=== PATIENT | female | born 1965 | race Caucasian/White ===

== ENCOUNTER 2022-09-16 11:08 | Observation (INO) | payer SELFPAY ==
[2022-09-16] VITALS (17 sets, daily range): BP systolic 115–174; BP diastolic 54–90
[~2022-09-16] VITALS: Ht 172.7 cm; Wt 155.4 kg
[~2022-09-16 11:08] MED LIST: BACTRIM DS1 TAB PO; CIPROFLOXACN500 MG PO; CLEOCIN300 MG PO; FLORASTOR250 M1 PO; LORTAB 5 OR; MINOCYCLINE100 MG PO; NO HOME MEDS; PENICILLN VK500 MG OR; TESSALON PER100 MG PO; VENTOLIN HF1 IN; ZITHROMAX250 MG PO
--- NOTE | 2022-09-16 12:35 | NUR ---
PT TO ROOM W/STEADY GAIT.
--- NOTE | 2022-09-16 14:00 | NUR ---
PT ADVISED OF WAIT TIME FOR RESULTS.
[2022-09-16 14:32] LABS: BASO% 0.2 % (0-3); EOS% 0.1 % (0-8); HEMATOCRIT 45.8 % (37.0-47.0); HEMOGLOBIN 14.3 g/dl (12.0-16.0); IMMATURE GRANULOCYTES 0.1 % (0.0-5.0); LYMPH% 6.4 % (15-41); MEAN CELL VOLUME 84.3 fL CALC (80.0-100.0); MEAN CORPUSCULAR HGB 26.3 pG CALC (26.0-32.0); MEAN CORPUSCULAR HGB CONC 31.2 g/dL CAL (32.0-36.0); MONO% 4.6 % (2-13); NEUT# 13.56 thou/uL (2.00-7.15); NEUT% 88.6 % (42-76); RED BLOOD COUNT 5.43 mill/uL (4.20-5.60); RED CELL DISTRI WIDTH 13.3 % (11.5-15.5)
[2022-09-16 14:46] LABS: ALKALINE PHOSPHATASE 90 u/l (38-126); ANION GAP 10 (6-22 (CALC)); BILIRUBIN, TOTAL 0.8 mg/dL (0.02-1.3); BUN 10 mg/dL (7-17); BUN/CREATININE RATIO 16 (12-20 (CALC)); C-REACTIVE PROTEIN 1.5 mg/dL (0-0.9); CARBON DIOXIDE 27 mmol/l (22-30); CHLORIDE 102 mmol/l (95-108); CREATININE 0.6 mg/dL (0.5-1.0); GFR FOR AFR.AMER. > 60 ML/MIN (>=60 (CALC)); GFR OTHER RACES > 60 ML/MIN (>=60 (CALC)); POTASSIUM 4.3 mmol/l (3.5-5.1); SGOT/AST 35 u/l (14-36); SODIUM 134 mmol/l (137-146); TOTAL PROTEIN 7.2 g/dL (6.3-8.2)
--- NOTE | 2022-09-16 15:35 | NUR ---
PT RESTING ON STRETCHER. IVIS. NANCY+RLDesmond
--- NOTE | 2022-09-16 17:14 | NUR ---
IV ABT COMPLETED. PT STABLE. VSS. IV SITE HEALTHY.
--- NOTE | 2022-09-16 17:35 | NUR ---
PT TO MEDSURG 269 VIA WC IN STABLE CONDITION. IV SITE HEALTHY. AFEBRILE. REPORT PROVIDED TO AMPARO, NURSE, ON MEDR.
--- NOTE | 2022-09-16 17:45 | NUR ---
PT RESTING UP TO CHAIR. A/OX3 AMBULATES TO RESTROOM URINE SAMPLE COLLECTED. HEART RHYTHM NORM. IV SITE TO RAC FLUSHED. S.L PT RESPIRATIONS ON ROOM AIR. PT STATES PAIN ONLY WHEN TOUCHES RLE. PHOTO TAKEN OF RLE IN CHART. PT STATED BM THIS MORNING. PT VS AND ASSESSMENT COMPLETED. PT AWARE OF DIET. PT DENIES ANY HOME MEDICATIONS. PT ORIENTED TO ROOM AND CALL LIGHT PT STATED UNDERSTANDING ,PT DENIES ADDITIONAL NEEDS AT THE TIME ALL SAFETY PRECAUTIONS IN PLACE WITH CALL LIGHT IN REACH.
[2022-09-16 18:22] LABS: URINE BILIRUBIN - DIPSTICK NEGATIVE (NEGATIVE); URINE BLOOD DIPSTICK NEGATIVE (NEGATIVE); URINE COLOR YELLOW; URINE GLUCOSE - DIPSTICK NEGATIVE (NEGATIVE); URINE KETONE NEGATIVE (NEGATIVE); URINE LEUK ESTERASE NEGATIVE (NEGATIVE); URINE NITRITE - DIPSTICK NEGATIVE (Negative); URINE PH 7.5 (4.5-8.0); URINE PROTEIN - DIPSTICK NEGATIVE (NEG-TRACE)
--- NOTE | 2022-09-16 19:00 | NUR ---
BEDSIDE REPORT RECEIVED FROM COY CHRISTENSEN. PATIENT SITTING UP IN BED WATCHING TV.
--- NOTE | 2022-09-16 20:11 | NUR ---
PATIENT OUT OF BED TO CHAIR WATCHING TV. ASSESSMENT COMPLETE. RIGHT LEG CELLULITS NOTED; RED IN COLOR, WARM TO TOUCH. PATIENT DENIES PAIN AT THIS TIME. NO DISTRESS NOTED. CALL LIGHT WITHIN REACH, INSTRUCTED TO CALL FOR ASSISTANCE.
--- NOTE | 2022-09-17 00:45 | NUR ---
RESTING QUIETLY, EYES CLOSED. CALL LIGHT WITHIN REACH.
[2022-09-17 04:01] VITALS: BP 109/36
[2022-09-17 05:29] LABS: HEMATOCRIT 43.4 % (37.0-47.0); HEMOGLOBIN 13.4 g/dl (12.0-16.0); MEAN CELL VOLUME 85.4 fL CALC (80.0-100.0); MEAN CORPUSCULAR HGB 26.4 pG CALC (26.0-32.0); MEAN CORPUSCULAR HGB CONC 30.9 g/dL CAL (32.0-36.0); RED BLOOD COUNT 5.08 mill/uL (4.20-5.60); RED CELL DISTRI WIDTH 13.5 % (11.5-15.5)
[2022-09-17 06:07] LABS: ALBUMIN 3.7 g/dL (3.2-5.0); ALKALINE PHOSPHATASE 81 u/l (38-126); ANION GAP 8 (6-22 (CALC)); BILIRUBIN, TOTAL 1.4 mg/dL (0.02-1.3); BUN 12 mg/dL (7-17); BUN/CREATININE RATIO 18 (12-20 (CALC)); CARBON DIOXIDE 30 mmol/l (22-30); CHLORIDE 102 mmol/l (95-108); CREATININE 0.7 mg/dL (0.5-1.0); GFR FOR AFR.AMER. > 60 ML/MIN (>=60 (CALC)); GFR OTHER RACES > 60 ML/MIN (>=60 (CALC)); SGOT/AST 26 u/l (14-36); SODIUM 135 mmol/l (137-146); TOTAL PROTEIN 6.6 g/dL (6.3-8.2)
[2022-09-17 07:10] VITALS: BP 132/46
--- NOTE | 2022-09-17 07:57 | NUR ---
PT RESTING COMFORTABLY. VITAL SIGNS STABLE. NO FURTHER NEEDS AT THIS TIME.
--- NOTE | 2022-09-17 12:12 | NUR ---
PT RESTING COMFORTABLY SITTING UP IN RECLINER. VITAL SIGNS STABLE. NO NEEDS AT THIS TIME.
--- NOTE | 2022-09-17 12:28 | NUR ---
S: ARLYNMADONNA DOWNS is a 56 F who presents with cellulitis. . She has a history of arthritis and chronic right lower extremity cellulitis. All medications in patient's chart were reviewed. O: VS: BP 132/46, P 80 bpm, RR 21 bpm, T 98 F W 155.4 kg, HT 68 inches, Scr= 0.7 mg/dL, CrCl= 138 ml/min A: Blood culture is pending. P: Patient is on ceftriaxone 1g IV Q24H. Vancomycin ordered for pharmacy to dose. Start Vancomycin 1.5g IV Q8H. Vancomycin trough is drawn before the 4th dose on 09/18/22 @ 0830. Vancomycin goal trough is between 10-15 mcg/ml. Pharmacy will follow and or advise on antibiotics use as needed.
--- NOTE | 2022-09-17 15:46 | NUR ---
PT RESTING COMFORTABLY. VITAL SIGNS STABLE. NO NEEDS AT THIS TIME.
[2022-09-17 16:10] VITALS: BP 157/66
[2022-09-17 19:22] VITALS: BP 133/77
--- NOTE | 2022-09-17 19:50 | NUR ---
pt in recliner watching tv denies pain or dicomfort. breathing even and unlabored. no s/s of distress noted. call light in reach asssessment completed.
--- NOTE | 2022-09-18 00:50 | NUR ---
pt in bed resting with eyes closed breathing even and unlabored. no s/s of distress noted. call light in reach and bed in lowest position.
--- NOTE | 2022-09-18 04:15 | NUR ---
pt in bed resting with eyes closed breathing even and unlabored. no s/s of distress noted. call light in reach and bed in lowest position.
[2022-09-18 04:39] VITALS: BP 146/61
[2022-09-18 04:48] LABS: BASO% 0.5 % (0-3); EOS% 2.3 % (0-8); HEMOGLOBIN 13.4 g/dl (12.0-16.0); IMMATURE GRANULOCYTES 0.3 % (0.0-5.0); LYMPH% 18.6 % (15-41); MEAN CELL VOLUME 85.7 fL CALC (80.0-100.0); MEAN CORPUSCULAR HGB 26.7 pG CALC (26.0-32.0); MEAN CORPUSCULAR HGB CONC 31.2 g/dL CAL (32.0-36.0); MONO% 11.7 % (2-13); NEUT# 4.88 thou/uL (2.00-7.15); NEUT% 66.6 % (42-76); RED BLOOD COUNT 5.02 mill/uL (4.20-5.60); RED CELL DISTRI WIDTH 13.5 % (11.5-15.5)
[2022-09-18 05:02] LABS: ALBUMIN 3.4 g/dL (3.2-5.0); ALKALINE PHOSPHATASE 82 u/l (38-126); ANION GAP 9 (6-22 (CALC)); BUN 9 mg/dL (7-17); BUN/CREATININE RATIO 18 (12-20 (CALC)); CARBON DIOXIDE 26 mmol/l (22-30); CHLORIDE 105 mmol/l (95-108); CREATININE 0.5 mg/dL (0.5-1.0); GFR FOR AFR.AMER. > 60 ML/MIN (>=60 (CALC)); GFR OTHER RACES > 60 ML/MIN (>=60 (CALC)); POTASSIUM 3.7 mmol/l (3.5-5.1); SGOT/AST 21 u/l (14-36); SODIUM 137 mmol/l (137-146); TOTAL PROTEIN 6.2 g/dL (6.3-8.2)
[2022-09-18 05:04] LABS: BILIRUBIN, TOTAL 0.5 mg/dL (0.02-1.3)
[2022-09-18 06:57] VITALS: BP 146/66
--- NOTE | 2022-09-18 07:10 | NUR ---
REPORT FROM WENDI CESPEDES. ASSUMED PT CARE.
--- NOTE | 2022-09-18 09:13 | NUR ---
NOTIFIED PHARMACY OF TROUGH, NO NEW CHANGES TO DOSE AT THIS TIME.
--- NOTE | 2022-09-18 09:52 | NUR ---
DR. RO AT BEDSIDE.
--- NOTE | 2022-09-18 11:08 | NUR ---
PT SITTING UP IN CHAIR. NO APPARENT DISTRESS NOTED. VANCO IV INFUSING WITHOUT DIFFICULTY. PT DENIES ANY CURRENT WANTS OR NEEDS. CALL LIGHT WITHIN REACH. WILL CONTINUE TO MONITOR.
--- NOTE | 2022-09-18 11:29 | NUR ---
PATIENT RECEIVING VANCOMYCIN 1.5G IV Q8H. TROUGH IS 14 MCG/DL. GOAL TROUGH 10-15 MCG/DL. CONTINUE VANCOMYCIN 1.5G IV Q8H. NEXT TROUGH 09/19/22 @0830.
--- NOTE | 2022-09-18 14:00 | NUR ---
PT SITTING UP IN CHAIR. NO APPARENT DISTRESS NOTED. PT DENIES ANY CURRENT WANTS OR NEEDS. CALL LIGHT WITHIN REACH. WILL CONTINUE TO MONITOR.
[2022-09-18 15:25] VITALS: BP 146/66
--- NOTE | 2022-09-18 17:35 | NUR ---
PT SITTING UP IN CHAIR. VISITORS AT BEDSIDE. IV ABT INFUSING, PT TOLERATING WELL. NO APPARENT DISTRESS NOTED. NO CURRENT WANTS OR NEEDS. CALL LIGHT WITHIN REACH. WILL CONTINUE TO MONITOR.
[2022-09-18 19:24] VITALS: BP 185/63
--- NOTE | 2022-09-18 20:46 | NUR ---
REPORT RECEIVED FROM CALCULATOR OPERATOR - PT OBSERVED UP TO CHAIR - DENIES PAIN OR ANY NEEDS AT THIS TIME - NO S/S DISTRESS SEEN - CALL LIGHT IN REACH
--- NOTE | 2022-09-19 00:13 | NUR ---
PT RESTING IN BED WATCHING TV - DENIES ANY NEEDS OR PAIN - CALL LIGHT IN REACH
--- NOTE | 2022-09-19 04:18 | NUR ---
PT OBSERVED IN BED WITH EYES CLOSED - NO S/S DISTRESS - CALL LIGHT IN REACH
[2022-09-19 04:29] VITALS: BP 156/75
[2022-09-19 06:38] VITALS: BP 141/64
--- NOTE | 2022-09-19 09:00 | NUR ---
RN AT BEDSIDE FOR SHIFT HANDOFF/ASSESSMENT. PT A/O X3 WITH NO SIGNS OF ACUTE DISTRESS NOTED AT THIS TIME. PLAN OF CARE DISCUSSED WITH PT; ALL QUESTIONS ANSWERED. CALL LIGHT AND PERSONAL BELONGINGS WITHIN REACH; WILL CONTINUE TO MONITOR.
--- NOTE | 2022-09-19 10:44 | NUR ---
S: ARLYNMADONNA DOWNS is a 56 F who presents with cellulitis. She has a history of arthritis, cellulitis, bronchitis, PNA. All medications in patient's chart were reviewed. O: VS: BP 141/64, P 90, RR 21,T 99.6 W 155.4 kg, HT 172.2, Scr= 0.5,CrCl= 97.3 ml/min A: Blood culture shows no growth after 48hours. P: Patient is on Rocephin 1g IV q 24hours. Vancomycin ordered for pharmacy to dose. Start Vancomycin 1g IV q 8hours. Vancomycin trough is drawn before the 4th dose on 09/20 at 1600. Vancomycin goal trough is between 10-15 mcg/ml. Pharmacy will follow and or advise on antibiotics use as needed.
[2022-09-19] MEDS ORDERED: VIBRAMYCIN100 M2 PO (11:44)
[2022-09-19] MEDS ORDERED: AMOX/K CLAV875 M1 PO (11:44)
--- NOTE | 2022-09-19 14:22 | NUR ---
PATIENT DISCHARGE INSTRUCTIONS PROVIDED. PATIENT STATED UNDERSTANDING. EDUCATED ON IMPORTANCE OF COMPLETING ABX.
== END 2022-09-19 14:20 | disposition home or self-care (01) | DRG 603 ==
LOC: ED 11:08 → ED-I 16:00 → ED 16:13 → MS2 16:14
PROVIDERS: Internal Medicine; Nurse Practitioner; ADMIT Internal Medicine; ATTEND Internal Medicine
DX: L03.115 Cellulitis of right lower limb (principal); Z68.41 Body mass index [BMI] 40.0-44.9, adult; I89.0 Lymphedema, not elsewhere classified; R73.03 Prediabetes; E66.01 Morbid (severe) obesity due to excess calories
CPT/HCPCS: G0378; J1650; J3370

== ENCOUNTER 2024-10-07 18:22 | Emergency (ER) | payer SELFPAY ==
[~2024-10-07] VITALS: Ht 172.7 cm; Wt 157.8 kg
[~2024-10-07 18:22] MED LIST changes: +AMOX/K CLAV875 M1 PO; +VIBRAMYCIN100 M2 PO
[2024-10-07] MEDS ORDERED: ACETAMINOPHEN 500 MG TAB PO ONE (21:35)
[2024-10-07] MEDS ORDERED: IBUPROFEN 800 MG/TAB PO ONE (21:35)
[2024-10-07] MEDS ORDERED: VOLTAREN - GENE75 MG PO (22:06)
[2024-10-07 22:24] VITALS: BP 151/88
== END 2024-10-07 22:24 | disposition home or self-care (01) | DRG 563 ==
LOC: ED 18:22
DX: S83.91XA Sprain of unspecified site of right knee, initial encounter (principal); X50.0XXA Overexertion from strenuous movement or load, initial encounter